=== PATIENT | female | born 1985 | race American Indian/Alaskan Native ===

== ENCOUNTER 2019-11-05 19:13 | Emergency (ER) | payer SELFPAY ==
[2019-11-05 20:05] LABS: Basophils % (Auto) 0.8 % (0.0-1.8); Eosinophils # (Auto) 0.4 K/mm3 (0.0-0.4); Hematocrit 38.3 % (30.3-42.9); Hemoglobin 12.7 gm/dl (10.1-14.3); Lymphocytes # (Auto) 1.2 K/mm3 (1.2-5.4); Lymphocytes % (Auto) 19.6 % (13.4-35.0); Mean Corpuscular HGB Conc 33 % (30-34); Mean Corpuscular Volume 81 fl (79-97); Monocytes # (Auto) 0.6 K/mm3 (0.0-0.8); Monocytes % (Auto) 10.1 % (0.0-7.3); Platelet Count 194 K/mm3 (140-440); Red Blood Count 4.75 M/mm3 (3.65-5.03); Red Cell Distribution Width 17.7 % (13.2-15.2)
[2019-11-05 20:29] LABS: Bacteria,Urine 1+ /HPF (Negative); Bilirubin,Urine NEG (Negative); Blood,Urine NEG (Negative); Color,Urine Yellow (Yellow); Mucus,Urine 3+ /HPF
[2019-11-05] MEDS ORDERED: ONDANSETRON 4 MG/2 ML INJ IV ONE (23:44)
[2019-11-05] MEDS ORDERED: SODIUM CHLORIDE 0.9% 1000 ML 1,000 ML IV ONE (23:44)
[2019-11-05] MEDS ORDERED: DICYCLOMINE 20 MG/2 ML INJ IM ONE (23:46)
--- NOTE | 2019-11-06 00:33 | Emergency Department Report ---
ED N/V/D HPI - General Chief complaint: Nausea/Vomiting/Diarrhea Stated complaint: VOMIT/9WKS /HEART RATE FAST Time Seen by Provider: 11/05/19 23:41 Source: patient Mode of arrival: Ambulatory Limitations: No Limitations - History of Present Illness Initial comments: Patient is a 34-year-old -[place] female LMP 9 weeks ago, she is G1, states she is currently 9 weeks presents with nausea vomiting for 3 weeks. Symptom includes abdominal cramping there is no vaginal bleeding, no vaginal discharge, no back pain, No fever or chills. Patient denies other medical history no hypertension no diabetes. Symptoms are exacerbated by p.o. intake. Symptoms are relieved by nothing tried. , complaint: nausea, vomiting Onset/Timin -: week(s) Description of Vomiting: food contents Associated Abdominal Pain: Yes (cramping ) Location: LLQ, RLQ Radiation: none Severity: moderate Pain Scale: 3 Quality: cramping Consistency: intermittent Improves with: none Worsens with: eating Associated Symptoms: nausea/vomiting. denies: chest pain, fever/chills, headaches, dysuria, shortness of breath - Related Data Previous Rx's Medication Instructions Recorded Last Taken Type Doxylamine Succinate/Vit B6 1 each PO BID PRN #15 tablet. 11/06/19 Unknown Rx [Bashir Barkley 10-10 mg Tablet] Miconazole 2% [Monistat 7 Vag 1 applicator VG QHS 7 Days #1 tube 11/06/19 Unknown Rx Cream] Allergies Allergy/AdvReac Type Severity Reaction Status Date / Time No Known Allergies Allergy Unverified 11/05/19 19:35 ED Review of Systems ROS: Stated complaint: VOMIT/9WKS /HEART RATE FAST Other details as noted in HPI Constitutional: denies: chills, fever Eyes: denies: eye pain, eye discharge, vision change ENT: denies: ear pain, throat pain Respiratory: denies: cough, shortness of breath, wheezing Cardiovascular: denies: chest pain, palpitations Endocrine: no symptoms reported Gastrointestinal: abdominal pain, nausea, vomiting. denies: diarrhea, constipation, melena Genitourinary: denies: urgency, dysuria, frequency, hematuria, discharge Musculoskeletal: denies: back pain, joint swelling, arthralgia Skin: denies: rash, lesions Neurological: denies: headache, weakness, paresthesias Psychiatric: denies: anxiety, depression Hematological/Lymphatic: denies: easy bleeding, easy bruising ED Past Medical Hx - Medications Home Medications: Home Medications Medication Instructions Recorded Confirmed Last Taken Type Doxylamine Succinate/Vit B6 1 each PO BID PRN #15 tablet. 11/06/19 Unknown Rx [Bashir Barkley 10-10 mg Tablet] Miconazole 2% [Monistat 7 Vag 1 applicator VG QHS 7 Days #1 tube 11/06/19 Unknown Rx Cream] ED Physical Exam - General Limitations: No Limitations General appearance: alert, in no apparent distress - Head Head exam: Present: atraumatic, normocephalic - Eye Eye exam: Present: normal appearance, PERRL, EOMI Pupils: Present: normal accommodation - ENT ENT exam: Present: normal exam, mucous membranes moist, TM's normal bilaterally, normal external ear exam. Absent: normal orophraynx ED Course Vital Signs 11/05/19 19:33 Temperature 97.8 F Pulse Rate 78 Respiratory 18 Rate Blood Pressure 166/102 O2 Sat by Pulse 99 Oximetry ED Medical Decision Making - Lab Data Result diagrams: 11/05/19 19:42 - Radiology Data Radiology results: report reviewed, image reviewed Findings Reporting MD: Roni Bueno Dictation Time: November 06, 2019 00:06 Photographic Plate Maker: Not available Battery Container Inspector Date: ULTRASOUND OBSTETRIC INDICATION: Abdominal pain. Estimated clinical gestational age of 7 weeks, 1 day. TECHNIQUE: Transabdominal and Transvaginal. COMPARISON: None available. FINDINGS: GESTATIONAL SAC: Well-defined oval shape and intrauterine in location. YOLK SAC: No significant abnormality. EMBRYO/FETUS: No significant abnormality. - [place]-Rump Length = 1.1 cm = 7 weeks, 1 day(s). - Heart Rate = 151 beats per minute. ADNEXA: The ovaries are not identified. No adnexal mass or other significant abnormality. FREE FLUID: None. ADDITIONAL FINDINGS: None. IMPRESSION: 1. Single, living intrauterine with estimated sonographic age of 7 weeks, 1 day(s). 2. No acute abnormality of the pelvis. Signer Name: Roni Bueno MD Signed: 11/06/2019 12:06 AM Workstation Name: [id number] - Medical Decision Making Symptoms are improved, US [place] IUP 7 weeks and 1 day , FHR : 151 bpm : hc UA: mild budding yeast, pt is tolerating po intake, plan: monostat, yvettefrriya, follow up with OBGYN in 2-3 days , pt verbalized agreement and understanding of discharge plan. Critical care attestation.: If time is entered above; I have spent that time in minutes in the direct care of this critically ill patient, excluding procedure time. ED Disposition Clinical Impression: Nausea and vomiting during Qualifiers: Weeks of gestation: less than 8 weeks Qualified Code(s): Z3A.01 - Less than 8 weeks gestation of Disposition: DC- TO HOME OR SELFCARE Is pt being admited?: No Does the pt Need Aspirin: No Condition: Stable Instructions: (ED), Acute Nausea and Vomiting (ED) Prescriptions: Miconazole 2% [Monistat 7 Vag Cream] 1 applicator VG QHS 7 Days #1 tube Doxylamine Succinate/Vit B6 [Bashir Barkley 10-10 mg Tablet] 1 each PO BID PRN #15 tablet.dr LOVEN Reason: nausea and vomiting Referrals: MILENA JOHN MD [Staff Physician] - 3-5 Days Forms: Work/School Release Form(ED) Time of Disposition: 01:28
--- NOTE | 2019-11-06 01:11 | Ultrasound Report ---
ULTRASOUND OBSTETRIC INDICATION: Abdominal pain. Estimated clinical gestational age of 7 weeks, 1 day. TECHNIQUE: Transabdominal and Transvaginal. COMPARISON: None available. FINDINGS: GESTATIONAL SAC: Well-defined oval shape and intrauterine in location. YOLK SAC: No significant abnormality. EMBRYO/FETUS: No significant abnormality. - [place]-Rump Length = 1.1 cm = 7 weeks, 1 day(s). - Heart Rate = 151 beats per minute. ADNEXA: The ovaries are not identified. No adnexal mass or other significant abnormality. FREE FLUID: None. ADDITIONAL FINDINGS: None. IMPRESSION: 1. Single, living intrauterine with estimated sonographic age of 7 weeks, 1 day(s). 2. No acute abnormality of the pelvis. Signer Name: Roni Bueno MD Signed: 11/06/2019 1:06 AM Workstation Name: [id number]
--- NOTE | 2019-11-06 01:11 | Ultrasound Report ---
ULTRASOUND OBSTETRIC INDICATION: Abdominal pain. Estimated clinical gestational age of 7 weeks, 1 day. TECHNIQUE: Transabdominal and Transvaginal. COMPARISON: None available. FINDINGS: GESTATIONAL SAC: Well-defined oval shape and intrauterine in location. YOLK SAC: No significant abnormality. EMBRYO/FETUS: No significant abnormality. - [place]-Rump Length = 1.1 cm = 7 weeks, 1 day(s). - Heart Rate = 151 beats per minute. ADNEXA: The ovaries are not identified. No adnexal mass or other significant abnormality. FREE FLUID: None. ADDITIONAL FINDINGS: None. IMPRESSION: 1. Single, living intrauterine with estimated sonographic age of 7 weeks, 1 day(s). 2. No acute abnormality of the pelvis. Signer Name: Roni Bueno MD Signed: 11/06/2019 1:06 AM Workstation Name: [id number]
[2019-11-06 01:16] LABS: Blood Urea Nitrogen 9 mg/dL (7-17); Calcium 9.6 mg/dL (8.4-10.2); Hemolysis Index 242
[2019-11-06 01:20] LABS: BUN/Creatinine Ratio 13
[2019-11-06 01:51] VITALS: BP 160/87
== END 2019-11-06 01:40 | disposition home or self-care (01) ==
LOC: ED 19:13
DX: O21.8 Other vomiting complicating pregnancy (principal); O26.891 Other specified pregnancy related conditions, first trimester; R10.9 Unspecified abdominal pain; Z79.899 Other long term (current) drug therapy; Z3A.01 Less than 8 weeks gestation of pregnancy
CPT/HCPCS: 36415; 76801; 76830; 80048; 81001; 84702; 85025; 96361; 96372; 96374; 99284; J0500; J2405; J7030

== ENCOUNTER 2019-12-22 09:39 | Emergency (ER) | payer OTHER ==
[2019-12-22 10:30] LABS: Basophils # (Auto) 0.1 K/mm3 (0.0-0.1); Basophils % (Auto) 0.8 % (0.0-1.8); Eosinophils # (Auto) 0.2 K/mm3 (0.0-0.4); Hematocrit 38.5 % (30.3-42.9); Hemoglobin 12.6 gm/dl (10.1-14.3); Lymphocytes # (Auto) 1.4 K/mm3 (1.2-5.4); Lymphocytes % (Auto) 19.9 % (13.4-35.0); Mean Corpuscular HGB Conc 33 % (30-34); Mean Corpuscular Volume 83 fl (79-97); Monocytes # (Auto) 0.7 K/mm3 (0.0-0.8); Monocytes % (Auto) 9.4 % (0.0-7.3); Platelet Count 237 K/mm3 (140-440); Red Blood Count 4.65 M/mm3 (3.65-5.03); Red Cell Distribution Width 17.1 % (13.2-15.2)
[2019-12-22 10:58] LABS: Alanine Aminotransferase 7 units/L (7-56); Albumin 4.2 g/dL (3.9-5); Blood Urea Nitrogen 4 mg/dL (7-17); Calcium 9.4 mg/dL (8.4-10.2); Hemolysis Index 7
[2019-12-22 10:59] LABS: BUN/Creatinine Ratio 8
--- NOTE | 2019-12-22 11:31 | Emergency Department Report ---
HPI - General Chief Complaint: High BP Time Seen by Provider: 12/22/19 11:12 - HPI HPI: Room 6 The patient is a 34-year-old female present with a chief complaint of body twitching shortness of breath and chest pain. The patient states she developed intermittent chest pain last week but states she was not certain if it was acid reflux or not. The patient states last night she developed intermittent twitching/jerking movements of her body and this morning she developed slight shortness of breath. Patient states she is also had lower abdominal cramping for several weeks but denies vaginal bleeding. Patient denies fever or any other forms of pain. Patient states she is scheduled to see her learning specialist tomorrow ED Past Medical Hx - Past Medical History Previous Medical History?: No - Surgical History Past Surgical History?: No - Family History Family history: no significant - Social History Smoking Status: Never Smoker Substance Use Type: None (Denies illicit drug use) - Medications Home Medications: Home Medications Medication Instructions Recorded Confirmed Last Taken Type Doxylamine Succinate/Vit B6 1 each PO BID PRN #15 tablet. 11/06/19 Unknown Rx [Bashir Barkley 10-10 mg Tablet] Miconazole 2% [Monistat 7 Vag 1 applicator VG QHS 7 Days #1 tube 11/06/19 Unknown Rx Cream] Famotidine [Pepcid] 20 mg PO BID #30 tablet 12/22/19 Unknown Rx Labetalol HCl [Labetalol 300mg TAB] 300 mg PO BID #60 tablet 12/22/19 Unknown Rx ED Review of Systems ROS: Stated complaint: PREG BLOOD PRESSURE HIGH Other details as noted in HPI Constitutional: denies: fever Eyes: denies: eye pain ENT: denies: throat pain Respiratory: shortness of breath Cardiovascular: chest pain Endocrine: no symptoms reported Gastrointestinal: abdominal pain, nausea, vomiting Genitourinary: denies: dysuria, abnormal menses Musculoskeletal: denies: back pain Neurological: denies: headache Physical Exam - Physical Exam Vital Signs: Vital Signs 12/22/19 09:51 Temperature 98 F Pulse Rate 103 H Respiratory 18 Rate Blood Pressure 164/112 O2 Sat by Pulse 98 Oximetry Physical Exam: GENERAL: The patient is well-developed well-nourished female lying on stretcher not appearing to be in acute distress. [] HEENT: Normocephalic. Atraumatic. Extraocular motions are intact. Patient has moist mucous membranes. NECK: Supple. Trachea midline CHEST/LUNGS: Clear to auscultation. There is no respiratory distress noted. HEART/CARDIOVASCULAR: Regular. There is no tachycardia. There is no gallop rub or murmur. ABDOMEN: Abdomen is soft, nontender. Patient has normal bowel sounds. There is no abdominal distention. SKIN: There is no rash. There is no edema. There is no diaphoresis. NEURO: The patient is awake, alert, and oriented. The patient is cooperative. The patient has normal speech MUSCULOSKELETAL: There is no evidence of acute injury. ED Course Vital Signs 12/22/19 09:51 Temperature 98 F Pulse Rate 103 H Respiratory 18 Rate Blood Pressure 164/112 O2 Sat by Pulse 98 Oximetry - Consultations Consultation #1: 12/22/19 15:57 HOSPITAL SUPERVISOR paged ED Medical Decision Making - Lab Data Result diagrams: 12/22/19 10:08 12/22/19 10:08 Laboratory Tests 12/22/19 12/22/19 12/22/19 10:08 10:08 10:08 WBC 7.0 RBC 4.65 Hgb 12.6 Hct 38.5 MCV 83 MCH 27 L MCHC 33 RDW 17.1 H Plt Count 237 Lymph % (Auto) 19.9 Cache % (Auto) 9.4 H Eos % (Auto) 3.0 Baso % (Auto) 0.8 Lymph # 1.4 Cache # 0.7 Eos # 0.2 Baso # 0.1 Seg Neutrophils % 66.9 Seg Neutrophils # 4.7 D-Dimer Sodium 135 L Potassium 3.9 Chloride 99.2 Carbon Dioxide 20 L Anion Gap 20 BUN 4 L Creatinine 0.5 L Estimated GFR > 60 BUN/Creatinine Ratio 8 Glucose 85 Calcium 9.4 Magnesium 1.90 Total Bilirubin 0.20 AST 14 ALT 7 Alkaline Phosphatase 50 Total Creatine Kinase 145 H CK-MB (CK-2) < 1.0 CK-MB (CK-2) Rel Index 0.6 Troponin T < 0.010 Total Protein 7.4 Albumin 4.2 Albumin/Globulin Ratio 1.3 HCG, Quant Urine Color Urine Turbidity Urine pH Ur Specific Neville Urine Protein Urine Glucose (UA) Urine Ketones Urine Blood Urine Nitrite Urine Bilirubin Urine Urobilinogen Ur Leukocyte Esterase Urine WBC (Auto) Urine RBC (Auto) U Epithel Cells (Auto) Urine Bacteria (Auto) Urine Mucus 12/22/19 12/22/19 12/22/19 11:32 11:32 11:50 WBC RBC Hgb Hct MCV MCH MCHC RDW Plt Count Lymph % (Auto) Cache % (Auto) Eos % (Auto) Baso % (Auto) Lymph # Cache # Eos # Baso # Seg Neutrophils % Seg Neutrophils # D-Dimer 224.69 Sodium Potassium Chloride Carbon Dioxide Anion Gap BUN Creatinine Estimated GFR BUN/Creatinine Ratio Glucose Calcium Magnesium Total Bilirubin AST ALT Alkaline Phosphatase Total Creatine Kinase CK-MB (CK-2) CK-MB (CK-2) Rel Index Troponin T Total Protein Albumin Albumin/Globulin Ratio HCG, Quant 20328 H Urine Color Luz Urine Turbidity Clear Urine pH 5.0 Ur Specific Neville 1.028 Urine Protein 100 mg/dl Urine Glucose (UA) Neg Urine Ketones 80 Urine Blood Neg Urine Nitrite Neg Urine Bilirubin Neg Urine Urobilinogen 2.0 Ur Leukocyte Esterase Neg Urine WBC (Auto) 3.0 Urine RBC (Auto) 1.0 U Epithel Cells (Auto) < 1.0 Urine Bacteria (Auto) 1+ Urine Mucus 3+ - EKG Data -: EKG Interpreted by Me EKG shows normal: sinus rhythm Rate: normal (84 bpm) - EKG Data When compared to previous EKG there are: previous EKG unavailable Interpretation: nonspecific ST-T wave gio (T wave inversions in leads III, aVF) - Radiology Data Radiology results: report reviewed (Chest x-ray, pelvic ultrasound), image reviewed (Chest x-ray, pelvic ultrasound) interpreted by me: Chest x-ray-no focal infiltrates, no pneumothorax, no foreign body [facility] [address] [place] [address] XRay Report Signed Patient: ALYSSA MANCINI MR#: [id number] 8 : 1985 Acct:[id number] Age/Sex: 34 / F ADM Date: 12/22/19 Loc: ED Attending Dr: Ordering Physician: JOSE LARIOS MD Date of Service: 12/22/19 Procedure(s): XR chest 1V ap Accession Number(s): [id number] cc: JOSE LARIOS MD Fluoro Time In Minutes: CHEST 1 VIEW INDICATION / CLINICAL INFORMATION: Shortness of breath. COMPARISON: None available. FINDINGS: SUPPORT DEVICES: None. HEART / MEDIASTINUM: No significant abnormality. LUNGS / PLEURA: No significant pulmonary or pleural abnormality. No pneumothorax. ADDITIONAL FINDINGS: No significant additional findings. IMPRESSION: 1. No acute findings. Signer Name: Angel Marie MD Signed: 12/22/2019 3:21 PM Workstation Name: [id number] Transcribed By: Dictated By: ANGEL MARIE Electronically Authenticated By: ANGEL MARIE Signed Date/Time: 12/22/19 152 DD/ 1520 TD/TT: [facility] [address] [place] [address] Ultrasound Report Signed Patient: ALYSSA MANCINI MR#: [id number] 8 : 1985 Acct:[id number] Age/Sex: 34 / F ADM Date: 12/22/19 Loc: ED Attending Dr: Ordering Physician: JOSE LARIOS MD Date of Service: 12/22/19 Procedure(s): US transvaginal Accession Number(s): [id number] cc: JOSE LARIOS MD US transvaginal INDICATION / CLINICAL INFORMATION: Lower abdominal pain. COMPARISON: 11/05/2019. FINDINGS: Single viable intrauterine is seen. [place]-rump length is 8.2 mm, 14 weeks 1 day. heart rate is 157. Ovaries appear within normal limits. There is a heterogeneously hypoechoic focus measuring approximately 6-7 cm adjacent to the gestational sac left of midline. IMPRESSION: 1. Single viable intrauterine sonographic gestational age of 14 weeks, 1 day by crown- rump length. 2. Heterogeneous hypoechoic focus left of midline near the gestational sac appears to be uterine. This could be somewhat exophytic uterine fibroid rather than an adnexal lesion. However, this was not clearly seen on the prior ultrasound from 11/05/2019. Sonographic follow-up is recommended. Signer Name: Ron Bobby MD Signed: 12/22/2019 4:27 PM Workstation Name: [id number] Transcribed By: Dictated By: Ron Bobby MD Electronically Authenticated By: Ron Bobby MD Signed Date/Time: 12/22/19 1627 DD/ 1623 TD/TT: - Differential Diagnosis PE, round ligament pain, threatened , ACS, pericarditis, GERD Critical care attestation.: If time is entered above; I have spent that time in minutes in the direct care of this critically ill patient, excluding procedure time. ED Disposition Clinical Impression: Hypertension, Atypical chest pain, Disposition: TO HOME OR SELFCARE Is pt being admited?: No Does the pt Need Aspirin: No Condition: Stable Instructions: Hypertension (ED), Chest Pain (ED) Additional Instructions: Return to the emergency department should you develop worsening symptoms, inability to tolerate food or liquids, high fever or any other concerns Prescriptions: Labetalol HCl [Labetalol 300mg TAB] 300 mg PO BID #60 tablet Famotidine [Pepcid] 20 mg PO BID #30 tablet [facility]: [facility] ANDREA [Primary Care Provider] - 3-5 Days [facility] [Provider Group] - 3-5 Days Time of Disposition: 16:54
[2019-12-22 12:01] LABS: Creatine Kinase MB < 1.0 ng/mL (0.0-4.0)
[2019-12-22 12:07] LABS: Bacteria,Urine 1+ /HPF (Negative); Bilirubin,Urine NEG (Negative); Blood,Urine NEG (Negative); Color,Urine Amber (Yellow); Mucus,Urine 3+ /HPF
--- NOTE | 2019-12-22 15:26 | XRay Report ---
CHEST 1 VIEW INDICATION / CLINICAL INFORMATION: Shortness of breath. COMPARISON: None available. FINDINGS: SUPPORT DEVICES: None. HEART / MEDIASTINUM: No significant abnormality. LUNGS / PLEURA: No significant pulmonary or pleural abnormality. No pneumothorax. ADDITIONAL FINDINGS: No significant additional findings. IMPRESSION: 1. No acute findings. Signer Name: Angel Alex MD Signed: 12/22/2019 3:21 PM Workstation Name: [id number]
--- NOTE | 2019-12-22 16:32 | Ultrasound Report ---
US transvaginal INDICATION / CLINICAL INFORMATION: Lower abdominal pain. COMPARISON: 11/05/2019. FINDINGS: Single viable intrauterine is seen. [place]-rump length is 8.2 mm, 14 weeks 1 day. hear t rate is 157. Ovaries appear within normal limits. There is a heterogeneously hypoechoic focus measuring approximately 6-7 cm adjacent to the gestationa l sac left of midline. IMPRESSION: 1. Single viable intrauterine sonographic gestational age of 14 weeks, 1 day by crown-rump length. 2. Heterogeneous hypoechoic focus left of midline near the gestational sac appears to be uterine. Thi s could be somewhat exophytic uterine fibroid rather than an adnexal lesion. However, this was not cl early seen on the prior ultrasound from 11/05/2019. Sonographic follow-up is recommended. Signer Name: Ron Bobby MD Signed: 12/22/2019 4:27 PM Workstation Name: [id number]
[2019-12-22 17:23] VITALS: BP 151/104
--- NOTE | 2019-12-24 07:43 | Ultrasound Report ---
Obstetrical ultrasound. HISTORY: Lower abdominal pain. COMPARISON: OB ultrasound 11/06/2019. FINDINGS: The uterus measures 13.7 x 9.5 x 9.8 cm. Intrauterine is dated 13 weeks 5 days wi th heart tones of 157 bpm. No anomaly is identified. A heterogeneous structure seen along the posterior aspect measures 6.6 x 6.7 x 5.3 cm. This area was seen previously and may represent a fibroid. No definite adnexal abnormality. IMPRESSION: 1. Viable intrauterine dated 13 weeks 5 days. 2. Probable uterine fibroid. Follow-up be performed after delivery. Signer Name: Reuben Vivas MD Signed: 12/24/2019 7:39 AM Workstation Name: [id number]
== END 2019-12-22 17:00 | disposition home or self-care (01) ==
LOC: ED 09:39
DX: O26.892 Other specified pregnancy related conditions, second trimester (principal); O16.2 Unspecified maternal hypertension, second trimester; Z3A.14 14 weeks gestation of pregnancy
CPT/HCPCS: 36415; 71045; 76801; 76817; 76830; 80053; 81001; 82550; 82553; 83735; 84484; 84702; 85025; 85379; 93005; 96374; 96376

== ENCOUNTER 2020-01-22 14:18 | Emergency (ER) | payer OTHER | END 2020-01-22 19:00 | disposition left against medical advice (07) | LOC: ED 14:18 | DX: O26.892 Other specified pregnancy related conditions, second trimester (principal); R10.31 Right lower quadrant pain; Z3A.18 18 weeks gestation of pregnancy ==

== ENCOUNTER 2020-05-26 12:38 | Observation (INO) | payer OTHER ==
[2020-05-26 15:59] LABS: Hematocrit 31.7 % (30.3-42.9); Mean Corpuscular HGB Conc 32 % (30-34); Mean Corpuscular Volume 77 fl (79-97); Platelet Count 203 K/mm3 (140-440); Red Blood Count 4.13 M/mm3 (3.65-5.03); Red Cell Distribution Width 16.3 % (13.2-15.2)
[2020-05-26 16:18] LABS: Alanine Aminotransferase 28 units/L (7-56); Albumin 3.4 g/dL (3.9-5); Blood Urea Nitrogen 9 mg/dL (7-17); Calcium 8.7 mg/dL (8.4-10.2); Hemolysis Index 15; Uric Acid 4.4 mg/dL (3.5-7.6)
[2020-05-26 16:20] LABS: BUN/Creatinine Ratio 15
[2020-05-26 16:48] VITALS: BP 138/81
[2020-05-26] MEDS ORDERED: hydrALAZINE 20 MG/1 ML INJ IV PRN (16:54)
--- NOTE | 2020-05-26 16:56 | History and Physical Report ---
History of Present Illness Date of examination: 05/26/20 Date of admission: 05/26/20 14:05 Chief complaint: Sent from clinic for blood pressure evaluation History of present illness: Pt is a 34 year old -[place] Citizen female primigravida AYALA 06/22/20 at 36w1d with h/o chronic hypertension on labetalol 300 mg BID presents with elevated blood pressures from [facility] office. She denies headache, blurry vision, scotomata or RUQ pain. She has had care at [facility] with comanagement by [facility] secondary to aforementioned hypertension, advanced maternal age, and bilateral pyelectasis. She is GBS positive. Past History Past Medical History: hypertension (chronic HTN on Labetalol 300mg BID ) Past Surgical History: no surgical history Family/Genetic History: none Social history: no significant social history - Obstetrical History Expected Date of Delivery: 06/22/20 Actual Gestation: 36 Week(s) 2 Day(s) : 1 Medications and Allergies Allergies Allergy/AdvReac Type Severity Reaction Status Date / Time No Known Allergies Allergy Unverified 11/05/19 19:35 Home Medications Medication Instructions Recorded Confirmed Last Taken Type Doxylamine Succinate/Vit B6 1 each PO BID PRN #15 tablet. 11/06/19 Unknown Rx [Bashir Barkley 10-10 mg Tablet] Miconazole 2% [Monistat 7 Vag 1 applicator VG QHS 7 Days #1 tube 11/06/19 Unknown Rx Cream] Famotidine [Pepcid] 20 mg PO BID #30 tablet 12/22/19 Unknown Rx Labetalol HCl [Labetalol 300mg TAB] 300 mg PO BID #60 tablet 12/22/19 Unknown Rx Review of Systems All systems: negative - Vital Signs Vital signs: Vital Signs Pulse Pulse Ox 69 99 05/26/20 13:26 05/26/20 13:26 Temp Pulse Resp BP Pulse Ox 76 138/81 100 05/26/20 16:53 05/26/20 16:46 05/26/20 16:53 - Physical Exam Breasts: Positive: deferred Abdomen: Positive: soft (obese, gravid ) Uterus: Positive: enlarged (gravid ) Extremities: Positive: edema (trace ) - Obstetrical FHR: auscultation normal Uterine Contraction Monitor Mode: External Uterine Contraction Pattern: Absent Uterine Tone Measurement Phase: Resting Results Result Diagrams: 05/26/20 14:35 05/26/20 14:35 Abnormal lab results 05/26/20 05/26/20 05/26/20 Range/Units 14:35 14:35 14:35 Hgb 10.0 L (10.1-14.3) gm/dl MCV 77 L (79-97) fl MCH 24 L (28-32) pg RDW 16.3 H (13.2-15.2) % Sodium 133 L (137-145) mmol/L Carbon Dioxide 19 L (22-30) mmol/L Glucose 126 H (65-100) mg/dL Alkaline Phosphatase 149 H (35-129) units/L Lactate Dehydrogenase 185 H (91-180) units/L Albumin 3.4 L (3.9-5) g/dL All other labs normal. Assessment and Plan A: IUP at 36w1d Chronic Hypertension on Labetalol 300 mg BID with mild range pressures over three hours of observation AMA Obesity Bilateral pyelectasis GBS Positive Pt request to complete 24 hr urine protein outpatient P: Plan to discharge home with instructions to complete 24 hr urine collection at home Follow up in office on SatMay 30, 2020 Preeclampsia precautions reviewed
--- NOTE | 2020-05-26 17:23 | Short Stay Summary ---
Short Stay Documentation Date of service: 05/26/20 - History H&P: dictated - Allergies and Medications Current Medications: Allergies No Known Allergies Allergy (Unverified 11/05/19 19:35) Home Medications Medication Instructions Recorded Confirmed Last Taken Type Doxylamine Succinate/Vit B6 1 each PO BID PRN #15 tablet. 11/06/19 Unknown Rx [Bashir Dr 10-10 mg Tablet] Miconazole 2% [Monistat 7 Vag 1 applicator VG QHS 7 Days #1 tube 11/06/19 Unknown Rx Cream] Famotidine [Pepcid] 20 mg PO BID #30 tablet 12/22/19 Unknown Rx Labetalol HCl [Labetalol 300mg TAB] 300 mg PO BID #60 tablet 12/22/19 Unknown Rx Active Medications Hydralazine HCl (Hydralazine 20 Mg/1 Ml Inj) 5 mg IV Q30MIN PRN PRN Reason: Hypertension Lactated Ringer's (Lactated Ringers) 1,000 mls @ 125 mls/hr IV DIRECT DWIGHT Labetalol HCl (Labetalol 100 Mg Tab) 300 mg PO BID DWIGHT - Hospital course Hospital course: Pt was admitted after an elevated blood pressure at her high risk obstetrics appointment for blood pressure monitoring and labs to evaluate for HELLP syndrome. She was evaluated for three hours when she was noted to have mild range pressures and the patient requested to collect her 24 hr urine at home. She was discharged with instructions to complete 24 hr urine collection, and will follow up with Dr Pham on Saturday05/30/20 in the office. - Disposition Condition at discharge: Stable Disposition: DC-01 TO HOME OR SELFCARE - Discharge Diagnoses (1) Chronic hypertension affecting Status: Acute (2) with 36 to 37 weeks completed gestation Status: Acute (3) Obesity (BMI 30.0-34.9) Status: Acute Short Stay Discharge Plan Activity: no restrictions Diet: regular Follow up with: MILENA PHAM MD [Primary Care Provider] - 05/30/20 (Please schedule appt ) Forms: [facility] Discharge Summary, Work/School Excuse Out Patient
[2020-05-26] MEDS ORDERED: LACTATED RINGERS 1,000 ML IV SCH (18:00)
== END 2020-05-27 00:46 | disposition home or self-care (01) ==
LOC: TRG 12:38 → APU 12:52 → TRG 13:46 → LD 14:05 → INTOOBSV 14:05
PROVIDERS: ADMIT Obstetrics & Gynecology; ATTEND Obstetrics & Gynecology
DX: O10.913 Unspecified pre-existing hypertension complicating pregnancy, third trimester (principal); O09.523 Supervision of elderly multigravida, third trimester; O99.213 Obesity complicating pregnancy, third trimester; O35.8XX0 Maternal care for other (suspected) fetal abnormality and damage, not applicable or unspecified; Z3A.36 36 weeks gestation of pregnancy
CPT/HCPCS: 36415; 59025; 80053; 82565; 83615; 84550; 85027; 86850; 86900; 86901; G0378

== ENCOUNTER 2020-05-30 12:24 | Outpatient (CLI) | payer OTHER ==
[2020-05-30] MEDS ORDERED: LACTATED RINGERS 500 ML IV ONE (13:02)
[2020-05-30 13:19] LABS: Bacteria,Urine 1+ /HPF (Negative); Bilirubin,Urine NEG (Negative); Blood,Urine NEG (Negative); Color,Urine Yellow (Yellow); Mucus,Urine 2+ /HPF
[2020-05-30 14:22] LABS: Hematocrit 28.6 % (30.3-42.9); Hemoglobin 9.1 gm/dl (10.1-14.3); Mean Corpuscular HGB Conc 32 % (30-34); Mean Corpuscular Volume 76 fl (79-97); Platelet Count 216 K/mm3 (140-440); Red Blood Count 3.76 M/mm3 (3.65-5.03); Red Cell Distribution Width 16.5 % (13.2-15.2)
[2020-05-30 15:21] LABS: Alanine Aminotransferase 28 units/L (7-56); Uric Acid 4.3 mg/dL (3.5-7.6)
[2020-05-30 15:59] VITALS: BP 142/80
== END 2020-05-30 16:25 | disposition home or self-care (01) ==
LOC: TRG 12:24 → APU 12:40 → TRG 16:25
PROVIDERS: ATTEND Obstetrics & Gynecology
DX: O13.3 Gestational [pregnancy-induced] hypertension without significant proteinuria, third trimester (principal); Z3A.36 36 weeks gestation of pregnancy
CPT/HCPCS: 36415; 59025; 81001; 82565; 83615; 84156; 84450; 84460; 84550; 85027

== ENCOUNTER 2021-08-18 13:13 | Inpatient (IN) | payer OTHER ==
[2021-08-18] MEDS: hydrALAZINE 20 MG/1 ML INJ IV PRN (18:13)
[2021-08-18 18:42] LABS: Bacteria,Urine 3+ /HPF (Negative); Bilirubin,Urine NEG (Negative); Blood,Urine NEG (Negative); Color,Urine Yellow (Yellow); Mucus,Urine 2+ /HPF; Protein,Urine <15 mg/dL mg/dL (Negative); Urobilinogen,Urine < 2.0 mg/dL (<2.0)
[2021-08-18] MEDS ORDERED: ONDANSETRON 4 MG/2 ML INJ IV PRN (18:45)
[2021-08-18] MEDS ORDERED: TERBUTALINE 1 MG/1 ML INJ SUB-Q PRN (18:45)
[2021-08-18] MEDS ORDERED: LACTATED RINGERS 1,000 ML IV SCH (18:45)
[2021-08-18] MEDS ORDERED: LOPERAMIDE 2 MG CAP PO PRN (18:45)
[2021-08-18] MEDS ORDERED: METHYLERGONOVINE MALEATE 0.2 MG/ML VIAL IM PRN (18:45)
[2021-08-18] MEDS ORDERED: NalbUPHINE 10 MG/1 ML INJ IV PRN (18:45)
[2021-08-18] MEDS ORDERED: ePHEDrine SULFATE 50 MG/1 ML INJ IV PRN (18:45)
[2021-08-18] MEDS ORDERED: OXYTOCIN 10 UNIT/1 ML INJ IM PRN (18:45)
[2021-08-18] MEDS ORDERED: miSOPROStol 200 MCG TAB PR PRN (18:45)
[2021-08-18] MEDS ORDERED: MINERAL OIL 30 ML ORAL LIQD PO PRN (18:45)
[2021-08-18] MEDS ORDERED: ACETAMINOPHEN 325 MG TAB PO PRN (18:45)
[2021-08-18] MEDS ORDERED: CARBOPROST TROMETHAMINE 250 MCG/1 ML INJ IM PRN (18:45)
[2021-08-18] MEDS ORDERED: BUTORPHANOL 2 MG/1 ML INJ IV PRN (18:45)
[2021-08-18 18:53] LABS: Hematocrit 37.1 % (30.3-42.9); Hemoglobin 12.7 gm/dl (10.1-14.3); Mean Corpuscular HGB Conc 34 % (30-34); Mean Corpuscular Volume 90 fl (79-97); Platelet Count 153 K/mm3 (140-440); Red Blood Count 4.12 M/mm3 (3.65-5.03); Red Cell Distribution Width 14.3 % (13.2-15.2)
[2021-08-18] MEDS: LACTATED RINGERS 1,000 ML IV SCH (19:02)
[2021-08-18 19:44] LABS: Alanine Aminotransferase 17 units/L (7-56); Uric Acid 3.5 mg/dL (3.5-7.6)
[2021-08-19] MEDS ORDERED: hydrALAZINE 20 MG/1 ML INJ ONE (01:35)
[2021-08-19] MEDS: LACTATED RINGERS 1,000 ML IV SCH ×2 (01:37→17:18)
[2021-08-19] MEDS: hydrALAZINE 20 MG/1 ML INJ IV PRN ×2 (01:39→08:42)
[2021-08-19 20:14] LABS: Creatinine,Urine 60.7 mg/dL (0.1-20.0)
[2021-08-19 20:15] LABS: Creatinine 24 Hour,Urine 1.2 (0.8-2.8)
[2021-08-19 20:39] VITALS: BP 148/90
== END 2021-08-19 21:12 | disposition home or self-care (01) | DRG 781 ==
LOC: LD 13:13
PROVIDERS: ADMIT Obstetrics & Gynecology; ATTEND Obstetrics & Gynecology
DX: O24.419 Gestational diabetes mellitus in pregnancy, unspecified control (principal); O13.3 Gestational [pregnancy-induced] hypertension without significant proteinuria, third trimester; O14.93 Unspecified pre-eclampsia, third trimester; Z3A.36 36 weeks gestation of pregnancy; Z20.822 Contact with and (suspected) exposure to COVID-19
CPT/HCPCS: 36415; 81001; 82565; 82570; 82962; 83615; 84156; 84450; 84460; 84550; 85027; 86850; 86900; 86901; 87086; G0378; J0360; J7120; U0003